=== PATIENT | female | born 1965 | race Caucasian/White ===

== ENCOUNTER 2018-03-06 00:13 | Outpatient (CLI) | payer BC, SELFPAY ==
[2018-03-06 12:37] LABS: BUN 12 mg/dL (7-18); CREATININE 0.85 mg/dL (0.55-1.02); Calcium 8.9 mg/dL (8.5-10.1); Chloride 104 mmol/L (98-107); Cholesterol 273 mg/dL (50-200); Glucose 85 mg/dL (70-100); HDL Cholesterol 55 mg/dL (40-60); LDL CHOLESTEROL 204 mg/dL (<100); Potassium 4.3 mmol/L (3.5-5.1); Sodium 141 mmol/L (136-145); Triglyceride 71 mg/dL (30-150)
== END 2018-03-06 00:33 ==
PROVIDERS: PCP Nurse Practitioner Family; Visit Provider Nurse Practitioner Family
DX: E78.5 Hyperlipidemia, unspecified (principal)
CPT/HCPCS: 36415; 80048; 80061; 83721

== ENCOUNTER 2018-06-12 00:51 | Outpatient (CLI) | payer BC, SELFPAY ==
[2018-06-12 11:31] LABS: ALT 20 U/L (12-78); AST 16 U/L (15-37); Albumin 3.7 g/dL (3.4-5.0); Alkaline Phosphatase 101 U/L (46-116); Anion Gap 9.7 mmol/L (3-11); BUN 14 mg/dL (7-18); Bilirubin, Total 1.3 mg/dL (0.2-1.0); CO2 29.3 mmol/L (21.0-32.0); CREATININE 0.86 mg/dL (0.55-1.02); Calcium 8.9 mg/dL (8.5-10.1); Chloride 104 mmol/L (98-107); Cholesterol 141 mg/dL (50-200); Glucose 92 mg/dL (70-100); HDL Cholesterol 61 mg/dL (40-60); LDL CHOLESTEROL 69 mg/dL (<100); Potassium 4.3 mmol/L (3.5-5.1); Sodium 143 mmol/L (136-145); Total Protein 6.9 g/dL (6.4-8.2); Triglyceride 49 mg/dL (30-150)
== END 2018-06-12 01:11 ==
PROVIDERS: PCP Nurse Practitioner Family; Visit Provider Nurse Practitioner Family
DX: E78.5 Hyperlipidemia, unspecified (principal)
CPT/HCPCS: 36415; 80053; 80061; 83721

== ENCOUNTER 2018-07-26 01:01 | Outpatient (CLI) | payer BC, SELFPAY ==
--- NOTE | 2018-07-26 17:00 | DI.MAMMO_ITS ---
SYMPTOM/DIAGNOSIS: SCREENING, Z12.31 MAMMOGRAMS: Mammograms were interpreted according to the usual protocol including computer analysis with CAD system, tomosynthesis and C view imaging. The breast tissue is heterogeneously radiodense which lowers the sensitivity of the study. There is no dominant mass. There are no suspicious calcifications and there has been no significant interval change when compared with prior images. IMPRESSION: No evidence of malignancy, category 1. Yearly screening mammography is recommended. Breast density, Category C. SA ASSESSMENT OF FINDINGS: Negative. Category 1. Patient will receive a letter notifying them of these results. Bi-RADS category C. The breasts are heterogeneously dense, which may obscure small masses.
== END 2018-07-26 01:21 ==
PROVIDERS: PCP Nurse Practitioner Family; Visit Provider Nurse Practitioner Family
DX: Z12.31 Encounter for screening mammogram for malignant neoplasm of breast (principal)
CPT/HCPCS: 77063; 77067

== ENCOUNTER 2019-01-25 18:36 | Outpatient (REF) | payer BC, SELFPAY ==
[2019-01-25 18:54] LABS: Bilirubin Negative (Negative); Blood Large (Negative); Clarity Clear (Clear); Glucose Negative (Negative); Ketones Negative (Negative); Leukocyte Esterase Large (Negative); Nitrite Negative (Negative); Urobilinogen 0.2 EU/dL (Up TO 0.2)
[2019-01-25 20:53] LABS: Bacteria Many HPF (Negative); C & S Indicated? Yes; Casts Negative LPF (Negative); Crystals Negative HPF (Negative); Epithelial Cells Negative HPF (Negative); Mucus Negative (Negative); WBC >50 HPF (0-5)
== END 2019-01-25 18:56 ==
LOC: LBN 18:36
PROVIDERS: PCP Nurse Practitioner Family
DX: N39.0 Urinary tract infection, site not specified (principal)
CPT/HCPCS: 87077; 81003; 81015; 87086; 87186

== ENCOUNTER 2019-02-26 01:29 | Outpatient (CLI) | payer BC, SELFPAY ==
[2019-02-26 13:03] LABS: Anion Gap 9.5 mmol/L (3-11); BUN 14 mg/dL (7-18); CO2 27.5 mmol/L (21.0-32.0); CREATININE 0.78 mg/dL (0.55-1.02); Calcium 8.8 mg/dL (8.5-10.1); Calculated LDL 92 mg/dL; Chloride 105 mmol/L (98-107); Cholesterol 170 mg/dL (50-200); Glucose 87 mg/dL (70-100); HDL Cholesterol 65 mg/dL (40-60); Sodium 142 mmol/L (136-145); Triglyceride 67 mg/dL (30-150)
[2019-02-28 06:36] LABS: Hemoglobin A1C 5.8 % (4.5-6.2)
== END 2019-02-26 01:49 ==
PROVIDERS: PCP Nurse Practitioner Family; Visit Provider Nurse Practitioner Family
DX: E78.5 Hyperlipidemia, unspecified (principal); Z13.1 Encounter for screening for diabetes mellitus
CPT/HCPCS: 36415; 80048; 80061; 83036

== ENCOUNTER 2019-05-02 16:10 | Outpatient (REF) | payer BC, SELFPAY ==
--- NOTE | 2019-05-02 16:00 | PAPFT_PTH ---
PATIENT: Mary Strickland LOC: [facility] U#:[id number] AGE/SX: 53/F ROOM: RE05/02/[address]: MATTHEW Phan : 1965 BED: DIS: 05/02/2019 SPEC #: [id number] RECD: 05/02/19 17:46 STATUS: LYDIA RENicki #: [id number] CARIDAD: 05/02/19 16:[address]: Josefina Condon DEPT: [facility] Cytology RECD BY: Melisa Fatima ENTERED: 05/02/19 17:48 SP TYPE: PAPFT ESTER DR: MATTHEW Jimenez Tissues: 1 - CX/ENDOCX FOR PAP SMEARS Procedures: PAP THIN PREP/UVM Screening HPV DNA PROBE Comments: [id number]
== END 2019-05-02 16:30 ==
LOC: LBN 16:10
PROVIDERS: PCP Nurse Practitioner Family; Visit Provider Nurse Practitioner Family
DX: Z12.4 Encounter for screening for malignant neoplasm of cervix (principal)
CPT/HCPCS: 88142; 87624

== ENCOUNTER 2019-05-02 17:28 | Outpatient (REF) | payer BC, SELFPAY ==
[2019-05-04 15:18] LABS: Chlamydia Result Negative (Negative); GC Result Negative (Negative)
== END 2019-05-02 17:48 ==
LOC: LBN 17:28
PROVIDERS: PCP Nurse Practitioner Family; Visit Provider Nurse Practitioner Family
DX: Z11.3 Encounter for screening for infections with a predominantly sexual mode of transmission (principal)
CPT/HCPCS: 87491; 87591

== ENCOUNTER 2019-09-27 02:31 | Outpatient (CLI) | payer BC, SELFPAY ==
--- NOTE | 2019-09-27 16:00 | DI.MAMMO_ITS ---
EXAM: MAMMO SCREENING CLINICAL HISTORY: screening TECHNIQUE: Mammograms were interpreted according to the usual protocol including computer analysis w [employer] CAD system, tomosynthesis and C-view imaging. COMPARISON: FINDINGS: The breasts are heterogeneously dense. No dominant mass clumped microcalcification is identified in either breast. Current examination is compared with previous examination is including July 2018 and there is new area of nodularity projected in the retroareolar areolar portion of the right breast on the MLO view, this is not optimally visualized. Spot compression view requested for further evaluat ion. Additionally I would note that the patient reports question of a palpable abnormality in the ha pra-areolar portion the right breast, additional evaluation with ultrasound may be indicated. No other significant change in appearance comparison with prior studies. IMPRESSION: Additional mammographic views of the right breast and right breast ultrasound requested as described above. BI-RADS Cat 0 - Assessment Incomplete: Need additional imaging evaluation: Breast Density - Category C - Heterogeneously dense:
== END 2019-09-27 02:51 ==
PROVIDERS: PCP Nurse Practitioner Family; Visit Provider Nurse Practitioner Family
DX: Z12.31 Encounter for screening mammogram for malignant neoplasm of breast (principal); R92.8 Other abnormal and inconclusive findings on diagnostic imaging of breast
CPT/HCPCS: 77063; 77067

== ENCOUNTER 2019-10-05 00:58 | Outpatient (CLI) | payer BC, SELFPAY ==
--- NOTE | 2019-10-05 | DI.MAMMO_ITS ---
EXAM: MG MAMMO SCREEN CALL BACK UNI CLINICAL HISTORY: NEW AREA OF NODULARITY PROJECTED IN RETROAREOLAR AREOLAR PORTION RT BREAST,. TECHNIQUE: Craniocaudal and mediolateral oblique Full Field Digital Mammography views of the right b reast with Computer Aided Diagnosis followed by Tomosynthesis and right breast ultrasound. COMPARISON: Priors available for comparison. FINDINGS: Mammography/Tomosynthesis: Masses/Architectural Distortion: Partially obscured well-circumscribed nodule at the 3 o'clock positi on retroareolar of the right breast. Microcalcifictions: No suspicious pleomorphic-type are seen. Skin Thickening/Nipple Retraction: None. Right breast US: Echotexture: Normal appearance of the glandular tissue. Shadowing: No suspicious foci. Cyst: 0.6 cm cyst at the 3 o'clock position of the right breast posterior to the nipple. This appear s to correspond to the mammographic abnormality. Solid lesions: None seen. Ductal dilation: None. IMPRESSION: 1. No evidence of malignancy is noted. 2. A six-month follow-up right mammogram is recommended for re-evaluation. 3. The findings were discussed with the patient on the date of the examination. BI-RADS Category 3 - 6 month - Probably Benign Finding: Recommend follow-up mammography in 6 months Breast Density - Category C - Heterogeneously dense The mammogram demonstrates the patient's breast tissue is dense. Dense breast tissue is very common a nd is not abnormal but dense breast tissue can make it harder to find cancer on a mammogram. Also, de nse breast tissue may increase their breast cancer risk. This information about the result of the [facility] mogram report was provided to the patient to raise their awareness. Use this report when you speak wi th the patient about their risks for breast cancer, which includes their family history. At that time , you may recommend for more screening tests (Ultrasound or MRI) as they might be useful based on the ir risk. A negative radiographic report should not delay biopsy if a dominant or clinically suspicious mass is present. Up to ten percent of cancers are not identified on mammography. A negative report may reinforce clinical impression. Adenosis and dense breasts may obscure an underlying neoplasm. False positive reports average 6 to 10%. Patient will receive a letter notifying them of these results.
== END 2019-10-05 01:18 ==
PROVIDERS: PCP Nurse Practitioner Family; Visit Provider Nurse Practitioner Family
DX: Z12.31 Encounter for screening mammogram for malignant neoplasm of breast (principal); R92.8 Other abnormal and inconclusive findings on diagnostic imaging of breast; N60.01 Solitary cyst of right breast
CPT/HCPCS: 76642; 77063; 77067

== ENCOUNTER 2020-02-24 01:51 | Outpatient (CLI) | payer BC, SELFPAY ==
[2020-02-24 13:12] LABS: Anion Gap 6.6 mmol/L (3-11); BUN 11 mg/dL (7-18); CO2 30.4 mmol/L (21.0-32.0); CREATININE 0.77 mg/dL (0.55-1.02); Calcium 8.7 mg/dL (8.5-10.1); Calculated LDL 95 mg/dL (<100); Chloride 104 mmol/L (98-107); Cholesterol 178 mg/dL (<200); Glucose 94 mg/dL (74-106); HDL Cholesterol 54 mg/dL (40-60); Potassium 3.6 mmol/L (3.5-5.1); Sodium 141 mmol/L (136-145); TSH (W/Ref FT4) 2.27 uIU/mL (0.36-3.74); Triglyceride 148 mg/dL (<150)
[2020-02-24 13:17] LABS: Hemoglobin A1C 5.6 % (<5.7)
== END 2020-02-24 02:11 ==
PROVIDERS: PCP Nurse Practitioner Family; Visit Provider Nurse Practitioner Family
DX: E78.5 Hyperlipidemia, unspecified (principal); R73.03 Prediabetes
CPT/HCPCS: 36415; 80048; 80061; 83036; 84443

== ENCOUNTER 2020-04-12 00:13 | Outpatient (CLI) | payer BC, SELFPAY ==
--- NOTE | 2020-04-12 08:30 | DI.US_ITS ---
EXAM: US BREAST RT LIMITED CLINICAL HISTORY: 6 mo f/u, f/u to abnl mammo, R92.8 TECHNIQUE: Ultrasound right breast performed using standard protocol. COMPARISON: US US BREAST RT LIMITED from 10/05/2019 MG MG MAMMO DIAGNOSTIC UNI from 04/12/2020 FINDINGS: Images from limited right breast ultrasound are submitted for interpretation. Recent mammogram was r suyapa. At the 3 o'clock position there is a well-defined wider than taller 6 x 4 millimeter probable hemorrh agic microcyst or conglomeration microcysts. This exhibits neutral through transmission. IMPRESSION: 3 o'clock position finding, present exhibiting benign appearance. Recommend repeat ultrasound examin ation in 3 months to ensure stability. BI-RADS Category 3 - Probably Benign Finding: Recommend follow-up ultrasound in 3 months DATA REPOSITORY:
--- NOTE | 2020-04-12 15:20 | DI.MAMMO_ITS ---
EXAM: MG MAMMO DIAGNOSTIC UNI-RIGHT CLINICAL HISTORY: f/u right mammogram, f/u to abnl mammo, 6 mo f/u. TECHNIQUE: Unilateral spot mammographic images were obtained with 3D [employer]osynthesistechnique and util izing computer aided detection (CAD). COMPARISON: Prior mammograms, most recent being September 2019.. FINDINGS: Previously described subtle nodule is a quickly present on the present mammogram. Right breast ultrasound today reveals finding at 3 o'clock position which has appearance of which is either hemorrhagic microcyst or conglomeration microcyst at the 3 o'clock position measuring 6 x 3 mi llimeters and most probably corresponding to the finding on the mammogram. This is wider than taller and not exhibiting neutral through transmission. IMPRESSION: Presently benign-appearing right breast nodule at the 3 o'clock position. Appropriate follow-up is repeat right breast ultrasound in 3 months to ensure stability.. BI-RADS Category 3 - 3 month - Probably Benign Finding: Recommend follow-up ultrasound in 3 months Breast Density - Category C - Heterogeneously dense Breast density Category C or D implies that the patient has dense breast tissue. Dense breast tissue can make it harder to find cancer on a mammogram. Dense breast tissue is also associated with an incr eased risk of breast cancer. This information about the result of the mammogram report was provided to the patient to raise their awareness. Use this report when you speak with the patient about their risks for breast cancer, which includes their family history. At that time, you may recommend additional screening tests (Ultrasoun d or MRI) as these tests may add significant information. A negative radiographic report should not delay biopsy if a dominant or clinically suspicious mass is present. Up to ten percent of cancers are not identified on mammography. A negative report may reinforce clinical impression. Adenosis and dense breasts may obscure an underlying neoplasm. False positive reports average 6 to 10%. Patient will receive a letter notifying them of these results.
== END 2020-04-12 00:33 ==
PROVIDERS: PCP Nurse Practitioner Family; Visit Provider Nurse Practitioner Family
DX: R92.8 Other abnormal and inconclusive findings on diagnostic imaging of breast (principal); N63.15 Unspecified lump in the right breast, overlapping quadrants
CPT/HCPCS: 76642; 77061; 77065; G0279

== ENCOUNTER 2020-07-16 02:22 | Outpatient (CLI) | payer BC, SELFPAY ==
--- NOTE | 2020-07-16 07:30 | DI.US_ITS ---
EXAM: US BREAST RT LIMITED CLINICAL HISTORY: 3 mo f/u breast US,R92.8. TECHNIQUE: Limited ultrasound of the right breast was performed. COMPARISON: Prior ultrasound 04/12/2020 was reviewed. Prior mammograms were also reviewed. FINDINGS: The previously described finding at 3 o'clock position of the right breast is again noted and is unch anged in size and appearance. It measures 6 x 4 millimeters, unchanged. Appropriate follow-up is to keep patient yearly mammogram schedule implying the next bilateral mammog wilver would be in September or October 2020. Recommend repeat ultrasound examination at that time. IMPRESSION: Continued stable appearance of the probable hemorrhagic 6 x 4 millimeter microcyst or conglomeration microcysts at the 3 o'clock position of the right breast. Appropriate follow-up is to get this patient yearly mammogram schedule, implying her next bilateral m ammogram would be in September or October 2020. Recommend repeat ultrasound examination at that time.. BI-RADS Category 3 - Annual - Resume Annual Screening (date as above)) Breast Density - Category C - Heterogeneously dense Breast density Category C or D implies that the patient has dense breast tissue. Dense breast tissue can make it harder to find cancer on a mammogram. Dense breast tissue is also associated with an incr eased risk of breast cancer. This information about the result of the mammogram report was provided to the patient to raise their awareness. Use this report when you speak with the patient about their risks for breast cancer, which includes their family history. At that time, you may recommend additional screening tests (Ultrasoun d or MRI) as these tests may add significant information. A negative radiographic report should not delay biopsy if a dominant or clinically suspicious mass is present. Up to ten percent of cancers are not identified on mammography. A negative report may reinforce clinical impression. Adenosis and dense breasts may obscure an underlying neoplasm. False positive reports average 6 to 10%. Patient will receive a letter notifying them of these results.
== END 2020-07-16 02:42 ==
PROVIDERS: PCP Nurse Practitioner Family; Visit Provider Nurse Practitioner Family
DX: R92.8 Other abnormal and inconclusive findings on diagnostic imaging of breast (principal)
CPT/HCPCS: 76642

== ENCOUNTER 2020-07-27 02:56 | Outpatient (CLI) | payer BC, SELFPAY ==
--- NOTE | 2020-07-27 09:21 | DI.US_ITS ---
APPROVED REPORT EXAM: Comprehensive 2D, Doppler, and color-flow Echocardiogram Patient Location: Out-Patient Property Condition Assessor: Adrianna Silva RDCS (AE) Indications: Dyspnea on exertion, Fluid weight gain Other Information Study Quality: Adequate Conclusion Left Ventricle : The left ventricle is normal size. The left ventricular systolic function is normal. The left ventricular ejection fraction is within the normal range. There is normal left ventricular wall thickness. There is normal LV segmental wall motion. The left ventricular diastolic function is normal. LVEF is 60-65%. Right Ventricle : The right ventricle is normal size. The right ventricular systolic function is norm al. The RVSP is 18.1 mmHg. Atria : The left atrium size is normal. The right atrium size is normal. Valves: There are no hemodynamically significant valvular lesions. Great Vessels : The aortic root is normal in size. The ascending aorta is normal in size. Aortic arch is normal in caliber. IVC is normal in size and collapses >50% with inspiration. Please see remainder of study for further details. Wall motion Left Ventricle The left ventricle is normal size. The left ventricular systolic function is normal. The left ventric ular ejection fraction is within the normal range. There is normal left ventricular wall thickness. T here is normal LV segmental wall motion. The left ventricular diastolic function is normal. There is no ventricular septal defect visualized. LVEF is 60-65%. Right Ventricle The right ventricle is normal size. The right ventricular systolic function is normal. The RVSP is 18 .1 mmHg. Atria The left atrium size is normal. The right atrium size is normal. The interatrial septum is intact wit h no evidence for an atrial septal defect. Aortic Valve The aortic valve is normal in structure. Aortic valve is trileaflet. There is no aortic valvular sten osis. No aortic regurgitation is present. Mitral Valve Mild mitral annular calcification. No evidence of mitral valve stenosis. Trace mitral regurgitation. Tricuspid Valve The tricuspid valve is normal in structure. There is no tricuspid valve stenosis. Trace tricuspid reg urgitation. Pulmonic Valve The pulmonary valve is normal in structure. There is no pulmonic valvular stenosis. There is no pulmo barbie valvular regurgitation. Great Vessels The aortic root is normal in size. The ascending aorta is normal in size. Aortic arch is normal in ca liber. IVC is normal in size and collapses >50% with inspiration. Pericardium There is no pericardial effusion. 2D Dimensions IVSD d PLAX 0.82 cm F: 0.6-1.0 LV Vol A2C d MOD 61.3 mL LVPW d PLAX 0.82 cm F: 0.6 - 1.0 LV Vol A4C d MOD 100.0 mL LVID d PLAX 5.03 cm F: 3.8 - 5.2 LA vol/ BSA A2C s A-L 20.9 mL/m2 LVDs 3.40 cm F: 2.2 - 3.5 LA vol/ BSA A4C s A-L 23.2 mL/m2 Ao Root d 2.25 cm F: 2.7 - 3.3 LA Vol/ BSA Biplane s A-L 22.5 mL/m2 RA Area A4C 13.62 cm2 LA Area A4C s MOD 15.51 cm2 RA Vol/ BSA A4C s A-L 18.6 mL/m2 LA Area A2C s MOD 14.40 cm2 Ao Asc Diam d 2.91 cm F: 2.3 - 3.1 LV EF A4C MOD 61.8 % LV EF Teichholz 60.4 % LV EF A2C MOD 64.3 % LVEF (Yost's) 63.04 % F: 54 - 74 LV EF Biplane MOD 63.0 % LV Volume 62.01 mL F: 46 - 106 SV 49.94 mL LV Volume Index 35.23 mL/m2 F: 29 - 61 SV Index 28.24 mL/m2 LV Vol Biplane MOD 79.2 mL FS 32.40 % M-Mode TAPSE 2.09 cm (M/F) >1.7 LV Diastology MV E' medial 0.093 (>0.07 m/s) E/A Ratio 1.1 LV E/e MED 8.00 (<14) MV E Vmax 0.74 (0.4-1.3 m/s) MV E' lateral 0.149 (>0.1 m/s) MV A Vmax 0.70 (0.4-1.3 m/s) LV E/e LAT 4.95 (<14) MV E/A Ratio 1.01 MV E/E' medial 8.02 MV E/E' lateral 5.00 Aortic Valve LVOT Area 2.72 cm2 AoV Area Vmax 2.39 cm2 LVOT Vmax 1.17 m/s AoV Area/ BSA (Vmax) 1.35 cm2/m2 LVOT Mean Levon. 0.79 m/s RK Mean Levon. 2.17 cm2 LVOT Peak Grad 5.5 mmHg RK Mean Levon. Index 1.23 cm2/m2 LVOT Mean Grad 2.9 mmHg LVOT VTI 0.268 m LVOT Diam s 1.85 cm AoV Vmax 1.34 m/s Velocity Ratio 0.87 AoV Mean Levon. 1.00 m/s AoV Peak Grad 7.1 mmHg LVOT SV 73.08 mL AoV Mean Grad 4.2 mmHg AoV VTI 0.287 m AoV Area VTI 2.55 cm2 AoV Area/ BSA (VTI) 1.44 cm/m2 Mitral Valve MV DT 182 (160-240 msec) MV PHT 53 msec MV Area PHT 4.16 cm2 MV VTI 0.280 m MV VTI Annulus 0.279 m MV Area VTI 2.60 (4.0-6.0 cm2) Pulmonary Valve PV Vmax 1.12 (0.5-1.5 m/s) RVOT Peak Gr. 2.28 mmHg PV Peak Grad 5.0 mmHg RVOT Mean Gr. 1.20 mmHg PV Mean Grad 2.7 mmHg RVOT VTI 0.165 m PV VTI 0.244 m RVOT Vmax 0.75 m/s Tricuspid Valve TR Peak Grad 15.1 mmHg TR Vmax 1.95 m/s RA Pressure 3.00 mmHg RVSP (TR) 18.1 mmHg
== END 2020-07-27 03:16 ==
PROVIDERS: PCP Nurse Practitioner Family; Visit Provider Nurse Practitioner Family
DX: R06.09 Other forms of dyspnea (principal)
CPT/HCPCS: 93306

== ENCOUNTER 2020-10-12 02:56 | Outpatient (CLI) | payer BC, SELFPAY ==
[2020-10-12 11:12] LABS: Anion Gap 8.1 mmol/L (3-11); BUN 12 mg/dL (7-18); CO2 31.9 mmol/L (21.0-32.0); CREATININE 0.9 mg/dL (0.55-1.02); Calcium 8.8 mg/dL (8.5-10.1); Calculated LDL 216 mg/dL (<100); Chloride 102 mmol/L (98-107); Cholesterol 292 mg/dL (<200); Glucose 107 mg/dL (74-106); HDL Cholesterol 48 mg/dL (40-60); Sodium 142 mmol/L (136-145); Triglyceride 144 mg/dL (<150)
== END 2020-10-12 02:57 | disposition home or self-care (01) ==
LOC: LBO 02:56
PROVIDERS: PCP Nurse Practitioner Family; Visit Provider Nurse Practitioner Family
DX: E78.5 Hyperlipidemia, unspecified (principal); I10 Essential (primary) hypertension
CPT/HCPCS: 36415; 80048; 80061

== ENCOUNTER 2020-11-05 01:53 | Outpatient (CLI) | payer BC, SELFPAY ==
--- NOTE | 2020-11-05 | DI.US_ITS ---
Exam(s) US BREAST LT COMPLETE US BREAST RT COMPLETE MG MAMMO SCREENING EXAM: MG MAMMO SCREENING AND BILATERAL COMPLETE BREAST ULTRASOUND CLINICAL HISTORY: screening,Z12.39. TECHNIQUE: Bilateral full field digital CC and MLO mammographic images were obtained with 3D tomosyn thesis and utilizing computer aided detection (CAD). Also performed spot mammographic views of both breasts. Also performed bilateral complete breast ultrasound including all 4 quadrants of both breasts, both r etroareolar regions and both axillary regions. COMPARISON: Prior mammograms dating back to 2011, the most recent being September and March 2020. als o reviewed prior right breast ultrasound examinations of March 2020 and June 2020. FINDINGS: BILATERAL MAMMOGRAM: No new significant radiograph findings in the right breast. Small benign-appearing nodule located la terally in the right breast is unchanged. In the left breast there is a new oval noncalcified well-defined nodule measuring 5 x 3 millimeters l ocated 3 cm in from the nipple. This persists on dedicated spot compression 3D view performed today. There are no malignant-appearing microcalcification groups in this region or elsewhere in either [address]. There is no significant architectural distortion nor skin thickening-retraction. BILATERAL COMPLETE BREAST ULTRASOUND: RIGHT BREAST ULTRASOUND: The previously described 6 x 4 millimeter finding at the 3 o'clock position is actually best seen at the 5 o'clock position on today's study and appears unchanged, the appearance of a conglomeration of microcysts/partially solid partially cystic wider than taller nodule measuring 5.5 x 3 millimeters. At the 9 o'clock position there is a 5 x 3 millimeter benign-appearing conglomeration microcysts whic h may correspond to the benign-appearing nodule on the mammogram. No solid lesions seen in the right breast. No significant adenopathy in the right axilla. LEFT BREAST ULTRASOUND: At the 9 o'clock position there is a 6 x 4 millimeter finding which corresponds to the new finding on the mammogram and has the appearance of a benign conglomeration of microcysts. Other focal ultrasound findings in the left breast is a 3 x 2 millimeter microcyst at the 11 o'clock position. No findings in the immediate retroareolar region. Benign-appearing 9 x 6 millimeter lymph node is noted in the left axilla. IMPRESSION: 1. No radiographic evidence of malignancy in the right breast and the previously described finding at the 3 o'clock position remains stable. Other benign ultrasound finding in the right breast as descr ibed above. 2. There is a new left breast nodule seen on today's mammogram. This corresponds to what appears to be a benign 6 x 4 millimeter conglomeration microcyst at the 9 o'clock position of the left breast on ultrasound. 3. Most importantly, there are no new solid lesions seen in either breast. Appropriate follow-up (as discussed by myself with the patient today) is repeat bilateral breast yordan ging in 6 months, to include repeat bilateral mammogram and repeat bilateral breast ultrasound. Find ings must be stable for 2 years before returning to yearly mammogram schedule. BI-RADS Category 3 - 6 month - Probably Benign Finding: Recommend follow-up mammography in 6 months Breast Density - Category B - Scattered areas of fibroglandular density Breast density Category C or D implies that the patient has dense breast tissue. Dense breast tissue can make it harder to find cancer on a mammogram. Dense breast tissue is also associated with an incr eased risk of breast cancer. This information about the result of the mammogram report was provided to the patient to raise their awareness. Use this report when you speak with the patient about their risks for breast cancer, which includes their family history. At that time, you may recommend additional screening tests (Ultrasoun d or MRI) as these tests may add significant information. A negative radiographic report should not delay biopsy if a dominant or clinically suspicious mass is present. Up to ten percent of cancers are not identified on mammography. A negative report may reinforce clinical impression. Adenosis and dense breasts may obscure an underlying neoplasm. False positive reports average 6 to 10%. Patient will receive a letter notifying them of these results.
== END 2020-11-05 02:13 ==
PROVIDERS: PCP Nurse Practitioner Family; Visit Provider Nurse Practitioner Family
DX: Z12.31 Encounter for screening mammogram for malignant neoplasm of breast (principal); R92.8 Other abnormal and inconclusive findings on diagnostic imaging of breast; N63.25 Unspecified lump in the left breast, overlapping quadrants
CPT/HCPCS: 76642; 77063; 77067

== ENCOUNTER 2021-04-23 03:00 | Outpatient (CLI) | payer BC, SELFPAY ==
[2021-04-23 11:25] LABS: Anion Gap 7.9 mmol/L (3-11); BUN 17 mg/dL (7-18); CO2 33.1 mmol/L (21.0-32.0); CREATININE 0.9 mg/dL (0.55-1.02); Calcium 9.2 mg/dL (8.5-10.1); Calculated LDL 119 mg/dL (<100); Chloride 100 mmol/L (98-107); Cholesterol 222 mg/dL (<200); Glucose 102 mg/dL (74-106); HDL Cholesterol 65 mg/dL (40-60); Potassium 3.1 mmol/L (3.5-5.1); Sodium 141 mmol/L (136-145); Triglyceride 191 mg/dL (<150)
== END 2021-04-23 03:01 | disposition home or self-care (01) ==
LOC: LBO 03:01
PROVIDERS: PCP Nurse Practitioner Family; Visit Provider Nurse Practitioner Family
DX: I10 Essential (primary) hypertension (principal); E78.5 Hyperlipidemia, unspecified
CPT/HCPCS: 36415; 80048; 80061

== ENCOUNTER 2021-05-13 00:35 | Outpatient (CLI) | payer BC, SELFPAY ==
--- NOTE | 2021-05-13 14:23 | DI.MAMMO_ITS ---
Exam(s) US BREAST RT LIMITED MG MAMMO DIAGNOSTIC BI US BREAST LT LIMITED EXAM: MG MAMMO DIAGNOSTIC BI CLINICAL HISTORY: 6 mo f/u,r92.8. COMPARISON: 2011 through 05 November 2020 TECHNIQUE: Craniocaudal and mediolateral oblique Full Field Digital Mammography views of both breast s with Computer Aided Diagnosis followed by Tomosynthesis and bilateral breast ultrasound. FINDINGS: Mammography/Tomosynthesis: Right mammogram: Masses/Architectural Distortion: None seen. Stable circumscribed nodule lateral right breast. Microcalcifications: No suspicious pleomorphic-type are seen. Skin Thickening/Nipple Retraction: None. Left mammogram: Masses/Architectural Distortion: None seen. Microcalcifications: No suspicious pleomorphic-type are seen. Skin Thickening/Nipple Retraction: None. Right breast US: Echotexture: Normal appearance of the glandular tissue. Shadowing: No suspicious foci. Cyst: 5 millimeter microcystic lesion 9 o'clock 5 cm from the nipple. 3 millimeter cyst 11 o'clock p osition 3 cm from the nipple. Solid lesions: None seen. Ductal dilation: None. Left breast ultrasound: Two tiny cysts in the 11 o'clock position. Previously noted lesion in the 9 o'clock position was not identified on the current exam. IMPRESSION: 1. No evidence of malignancy is noted. Stable small benign appearing cystic lesions noted on ultrasou nd bilaterally. 2. Unless there is more urgent need, follow-up screening mammography is recommended, as per [place] [employer] guidelines. BI-RADS Category 2 - Benign Findings Breast Density - Category B - Scattered areas of fibroglandular density A negative radiographic report should not delay biopsy if a dominant or clinically suspicious mass is present. Up to ten percent of cancers are not identified on mammography. A negative report may reinforce clinical impression. Adenosis and dense breasts may obscure an underlying neoplasm. False positive reports average 6 to 10%. Patient will receive a letter notifying them of these results.
== END 2021-05-13 00:55 ==
PROVIDERS: PCP Nurse Practitioner Family; Visit Provider Nurse Practitioner Family
DX: R92.8 Other abnormal and inconclusive findings on diagnostic imaging of breast (principal); Z12.31 Encounter for screening mammogram for malignant neoplasm of breast
CPT/HCPCS: 76642; 77062; 77066; G0279

== ENCOUNTER 2021-05-13 02:23 | Outpatient (CLI) | payer BC, SELFPAY ==
[2021-05-13 14:24] LABS: Magnesium 2.1 mg/dL (1.8-2.4); Potassium 3.5 mmol/L (3.5-5.1)
== END 2021-05-13 02:24 | disposition home or self-care (01) ==
LOC: LBO 02:24
PROVIDERS: PCP Nurse Practitioner Family; Visit Provider Nurse Practitioner Family
DX: E87.6 Hypokalemia (principal)
CPT/HCPCS: 36415; 83735; 84132

== ENCOUNTER 2021-09-24 03:05 | Outpatient (CLI) | payer BC, SELFPAY | END 2021-09-24 03:06 | disposition home or self-care (01) | LOC: LOS 03:05 | PROVIDERS: PCP Nurse Practitioner Family; Visit Provider Nurse Practitioner ==

== ENCOUNTER 2021-11-07 02:41 | Outpatient (CLI) | payer BC, SELFPAY ==
[2021-11-07 10:36] LABS: Hemoglobin A1C 5.8 % (<5.7)
[2021-11-07 11:22] LABS: Anion Gap 6.5 mmol/L (3-11); BUN 13 mg/dL (7-18); CO2 32.5 mmol/L (21.0-32.0); CREATININE 0.9 mg/dL (0.55-1.02); Calcium 8.9 mg/dL (8.5-10.1); Calculated LDL 123 mg/dL (<100); Chloride 102 mmol/L (98-107); Cholesterol 216 mg/dL (<200); Glucose 97 mg/dL (74-106); HDL Cholesterol 57 mg/dL (40-60); Sodium 141 mmol/L (136-145); Triglyceride 183 mg/dL (<150)
== END 2021-11-07 02:42 | disposition home or self-care (01) ==
PROVIDERS: PCP Nurse Practitioner Family; Visit Provider Nurse Practitioner
DX: E78.5 Hyperlipidemia, unspecified (principal); I10 Essential (primary) hypertension; R73.03 Prediabetes
CPT/HCPCS: 36415; 80048; 80061; 83036

== ENCOUNTER 2021-11-26 03:28 | Outpatient (CLI) | payer BC, SELFPAY ==
[2021-11-26 14:42] LABS: Potassium 3.2 mmol/L (3.5-5.1)
== END 2021-11-26 03:29 | disposition home or self-care (01) ==
PROVIDERS: PCP Nurse Practitioner Family; Visit Provider Nurse Practitioner
DX: I10 Essential (primary) hypertension (principal)
CPT/HCPCS: 36415; 84132

== ENCOUNTER 2021-12-10 01:32 | Outpatient (CLI) | payer BC, SELFPAY ==
[2021-12-10 16:06] LABS: Anion Gap 9.3 mmol/L (3-11); BUN 16 mg/dL (7-18); CO2 27.7 mmol/L (21.0-32.0); CREATININE 0.8 mg/dL (0.55-1.02); Calcium 8.6 mg/dL (8.5-10.1); Chloride 106 mmol/L (98-107); Glucose 89 mg/dL (74-106); Potassium 3.9 mmol/L (3.5-5.1); Sodium 143 mmol/L (136-145)
== END 2021-12-10 01:33 | disposition home or self-care (01) ==
PROVIDERS: PCP Nurse Practitioner Family; Visit Provider Nurse Practitioner
DX: I10 Essential (primary) hypertension (principal)
CPT/HCPCS: 36415; 80048

== ENCOUNTER 2022-06-09 00:53 | Outpatient (CLI) | payer BC, SELFPAY ==
[2022-06-09 13:07] LABS: Anion Gap 5.1 mmol/L (3-11); BUN 15 mg/dL (7-18); CO2 31.9 mmol/L (21.0-32.0); Calcium 9.4 mg/dL (8.5-10.1); Calculated LDL 90 mg/dL (<100); Chloride 104 mmol/L (98-107); Cholesterol 170 mg/dL (<200); Estimated GFR 65.71 (mL/min/1.73m2); Glucose 102 mg/dL (74-106); HDL Cholesterol 55 mg/dL (40-60); Potassium 3.6 mmol/L (3.5-5.1); Sodium 141 mmol/L (136-145); Triglyceride 126 mg/dL (<150)
[2022-06-09 13:08] LABS: Hemoglobin A1C 5.9 % (<5.7)
== END 2022-06-09 00:54 | disposition home or self-care (01) ==
LOC: LOS 00:53
PROVIDERS: PCP Nurse Practitioner Family; Visit Provider Nurse Practitioner Family
DX: I10 Essential (primary) hypertension (principal); E78.5 Hyperlipidemia, unspecified; R73.03 Prediabetes
CPT/HCPCS: 36415; 80048; 80061; 83036

== ENCOUNTER 2022-06-10 01:15 | Outpatient (CLI) | payer BC, SELFPAY | END 2022-06-10 01:35 | LOC: DI 01:17 | PROVIDERS: PCP Nurse Practitioner Family; Visit Provider Nurse Practitioner Family | DX: Z12.31 Encounter for screening mammogram for malignant neoplasm of breast (principal) | CPT/HCPCS: 77063; 77067 ==

== ENCOUNTER 2022-11-03 02:47 | Outpatient (CLI) | payer BC, SELFPAY ==
[2022-11-03 14:08] LABS: Anion Gap 7.9 mmol/L (3-11); BUN 10 mg/dL (7-18); CO2 30.1 mmol/L (21.0-32.0); Chloride 106 mmol/L (98-107); Glucose 117 mg/dL (74-106); Potassium 3.8 mmol/L (3.5-5.1); Sodium 144 mmol/L (136-145); TSH (W/Ref FT4) 2.29 uIU/mL (0.36-3.74)
== END 2022-11-03 02:48 | disposition home or self-care (01) ==
LOC: LBO 02:47
PROVIDERS: PCP Nurse Practitioner Family; Visit Provider Nurse Practitioner Family
DX: R60.0 Localized edema (principal); I10 Essential (primary) hypertension; E78.5 Hyperlipidemia, unspecified
CPT/HCPCS: 36415; 80048; 84443

== ENCOUNTER 2023-01-19 02:20 | Outpatient (CLI) | payer BC, SELFPAY ==
[2023-01-19 16:42] LABS: Abs Immature Grans 0.01 10^3/uL (0.0-0.06); Absolute Basophil Count 0.05 10^3/uL (0.0-0.2); Absolute Lymphocyte Count 3.01 10^3/uL (1.2-3.4); Absolute Monocyte Count 0.33 10^3/uL (0.1-0.8); Absolute Neutrophil Count 2.68 10^3/uL (1.2-6.7); Basophils % 0.7; Eosinophils % 10.3; HCT 37.9 % (36.0-46.0); HGB 12.3 g/dL (11.2-15.7); Immature Grans % 0.1; Lymphocytes % 44.4; MCH 28.1 pg (27.0-33.0); MCHC 32.5 % (32.0-36.0); MCV 87 fL (80-95); MPV 9.5 fL (8.0-11.0); Monocytes % 4.9; Neutrophils % 39.6; Platelet Count 212 10^3/uL (130-400); RBC 4.38 10^6/uL (3.93-5.22); RDW 12.7 % (11.7-14.6); RDW-SD 40.5 fL; WBC 6.78 10^3/uL (4.4-10.8)
== END 2023-01-19 02:21 | disposition home or self-care (01) ==
LOC: LBO 02:20
PROVIDERS: PCP Nurse Practitioner Family; Visit Provider Nurse Practitioner Family
DX: I10 Essential (primary) hypertension; R73.03 Prediabetes; R19.09 Other intra-abdominal and pelvic swelling, mass and lump; R60.0 Localized edema
CPT/HCPCS: 36415; 85025

== ENCOUNTER 2023-08-28 16:17 | Outpatient (REF) | payer BC, SELFPAY ==
--- NOTE | 2023-08-28 13:00 | PAPFT_PTH ---
PATIENT: Mary Strickland LOC: [facility] U#:[id number] AGE/SX: 57/F ROOM: RE08/28/[address]: MATTHEW Jimenez : 1965 BED: DIS: 08/28/2023 SPEC #: [id number] RECD: 08/31/23 13:09 STATUS: LYDIA HEATH #: [id number] CARIDAD: 08/28/23 13:[address]: Radha Magallanes DEPT: [facility] Cytology RECD BY: Melisa Fatima Tissues: 1 - CX/ENDOCX FOR PAP SMEARS Procedures: PAP THIN PREP/UVM Screening HPV DNA PROBE Comments: [id number]
== END 2023-08-28 16:18 | disposition home or self-care (01) ==
LOC: LBN 16:17
PROVIDERS: PCP Nurse Practitioner Family; Visit Provider Nurse Practitioner Family
DX: Z00.00 Encounter for general adult medical examination without abnormal findings (principal); I10 Essential (primary) hypertension; K58.9 Irritable bowel syndrome, unspecified; R19.4 Change in bowel habit
CPT/HCPCS: 88142; 87624

== ENCOUNTER → 2023-09-23 03:31 | Outpatient (CLI) | payer BC, SELFPAY ==
--- NOTE | 2023-09-23 08:15 | DI.MAMMO_ITS ---
Exam(s) MAMMO SCREENING EXAM: MAMMO SCREENING CLINICAL HISTORY: screening, Z12.39 TECHNIQUE: Mammograms were interpreted according to the usual protocol including computer analysis w [employer] CAD system, tomosynthesis and C-view imaging. COMPARISON: 2013 through 2022 FINDINGS: The breasts are composed of scattered fibroglandular densities, Breast Density category B. No suspicious masses or suspicious microcalcifications are seen. No skin thickening or abnormal axillary lymph nodes are seen. There has been no significant change from prior exams. IMPRESSION: BI-RADS Category 1, Negative mammogram Yearly screening mammography is recommended. Breast Density - Category B, scattered fibroglandular densities. A negative radiographic report should not delay biopsy if a dominant or clinically suspicious mass is present. Up to ten percent of cancers are not identified on mammography. A negative report may reinforce clinical impression. Adenosis and dense breasts may obscure an underlying neoplasm. False positive reports average 6 to 10%. Patient will receive a letter notifying them of these results.
== END ==
PROVIDERS: PCP Nurse Practitioner Family; Visit Provider Nurse Practitioner Family
DX: Z12.31 Encounter for screening mammogram for malignant neoplasm of breast (principal)
CPT/HCPCS: 77063; 77067

== ENCOUNTER 2023-10-20 03:16 | Outpatient (CLI) | payer BC, SELFPAY ==
[2023-10-20 12:51] LABS: Abs Immature Grans 0.01 10^3/uL (0.0-0.06); Absolute Basophil Count 0.05 10^3/uL (0.0-0.2); Absolute Eosinophil Count 0.33 10^3/uL (0.0-0.7); Absolute Lymphocyte Count 2.11 10^3/uL (1.2-3.4); Absolute Monocyte Count 0.27 10^3/uL (0.1-0.8); Absolute Neutrophil Count 2.13 10^3/uL (1.2-6.7); Eosinophils % 6.7 %; HCT 39.1 % (36.0-46.0); HGB 12.6 g/dL (11.2-15.7); Immature Grans % 0.2 %; Lymphocytes % 43.1 %; MCH 28.6 pg (27.0-33.0); MCHC 32.2 % (32.0-36.0); MCV 89 fL (80-95); MPV 9.4 fL (8.0-11.0); Monocytes % 5.5 %; Neutrophils % 43.5 %; Platelet Count 247 10^3/uL (130-400); RBC 4.41 10^6/uL (3.93-5.22); RDW 12.9 % (11.7-14.6); RDW-SD 42.1 fL
[2023-10-20 13:04] LABS: Hemoglobin A1C 5.7 % (<5.7)
[2023-10-20 13:08] LABS: ALT 26 U/L (14-59); AST 18 U/L (15-37); Albumin 3.8 g/dL (3.4-5.0); Alkaline Phosphatase 95 U/L (46-116); Anion Gap 7.9 mmol/L (3-11); BUN 12 mg/dL (7-18); Bilirubin, Total 1.32 mg/dL (0.2-1.0); CO2 29.1 mmol/L (21.0-32.0); CREATININE 0.9 mg/dL (0.55-1.02); Calcium 9.2 mg/dL (8.5-10.1); Chloride 107 mmol/L (98-107); Glucose 95 mg/dL (74-106); Potassium 3.8 mmol/L (3.5-5.1); Sodium 144 mmol/L (136-145); TSH (W/Ref FT4) 1.81 uIU/mL (0.36-3.74); Total Protein 7.1 g/dL (6.4-8.2)
[2023-10-20 19:48] LABS: Hepatitis C Ab w Rflx HCV PCR Negative (Negative)
[2023-10-20 22:13] LABS: Lab Add On Test DONE
[2023-10-21 10:19] LABS: IgA 124 mg/dL (85-499); Interpretation (See Note); Tissue Transglutaminase IgA <4.0 CU (<20.0)
[2023-10-21 20:48] LABS: HIV-1/2 Ag & Ab Screen Negative (Negative)
[2023-10-21 20:51] LABS: HBs Antibody, Quant 318.2 mIU/mL (See Note); Hep B Surface Ab Positive (See Note); Hepatitis B Core Antibody Negative (Negative); Hepatitis B Surface Antigen Negative (Negative)
== END 2023-10-20 03:17 | disposition home or self-care (01) ==
LOC: LOS 03:16
PROVIDERS: PCP Nurse Practitioner Family; Visit Provider Nurse Practitioner Family
DX: K58.9 Irritable bowel syndrome, unspecified (principal); Z00.00 Encounter for general adult medical examination without abnormal findings; Z11.59 Encounter for screening for other viral diseases
CPT/HCPCS: 36415; 80053; 82784; 83516; 86704; 86706; 86803; 87340; 87389; 83036; 84443; 85025

== ENCOUNTER 2023-11-27 08:30 | Day surgery (SDC) | payer BC, SELFPAY ==
--- NOTE | 2023-11-26 11:48 | W.ANESPRE ---
General Info Date of Service Date Performed: 11/27/23 Height: 5 ft 3 in Weight: 72.631 kg Body Mass Index (BMI): 28.3 Surgical Procedure: Operation Date: 11/27/23 09:50 Proposed Procedure Side Surgeon moisés Herman MD Meds Allergies and Home Medications Allergies Allergy/AdvReac Type Severity Reaction Status Date / Time dog dander Allergy Itchy eyes Verified 11/27/23 08:49 No Known Drug Allergies Allergy Unknown Verified 11/27/23 08:49 Home Medication ?Medication ?Instructions ?Recorded cetirizine 10 mg capsule (All Day 10 mg PO DAILY 12/01/19 Allergy (cetirizine)) cholecalciferol (vitamin D3) 50 50 mcg PO DAILY 03/08/21 mcg (2,000 unit) capsule valacyclovir 1 gram tablet 1,000 mg PO DAILY PRN herpes 01/20/23 simplex II 5 days #30 tabs rosuvastatin 10 mg tablet 10 mg PO DAILY #90 tabs 11/11/23 Current Visit Medications: Current Medications Generic Name Dose Route Start Last Admin Trade Name Freq PRN Reason Stop Dose Admin Ringer's Solution 1,000 mls @ 80 mls/hr 11/27/23 06:00 IV 12/26/23 23:59 INFUSION BRYANNA IV Miscellaneous Supplies 1 each 11/27/23 06:00 Iv Access IV 12/26/23 23:59 DIRECTED BRYANNA Sodium Chloride 0 ml 11/27/23 06:00 Normal Saline Flush 10 Ml Syr IV 12/26/23 23:59 PRN PRN Sodium Chloride 0 ml 11/27/23 06:00 Normal Saline 10 Ml Vial IJ 12/26/23 23:59 DIRECTED PRN Sterile Water 0 ml 11/27/23 06:00 Water,Injection,Sterile 10 Ml Vial IJ 12/26/23 23:59 DIRECTED PRN PFSH Active Problems Active Problems: Problem Status Onset Code Essential hypertension Chronic I10 Prediabetes Chronic R73.03 IBS (irritable bowel syndrome) Chronic K58.9 Change in bowel habits Chronic R19.4 Hyperlipidemia Chronic E78.5 Rhinitis Acute J31.0 Bilateral lower extremity edema Chronic R60.0 Medical History Medical History COVID-19 virus infection Renal calculi Depression Surgical History Surgical History History of bilateral ligation of fallopian tubes Tobacco Smoking/Tobacco Use Status: Never Passive smoking exposure: No Second hand exposure: Yes Alcohol Alcohol Intake: current Alcohol intake frequency: a few times a month Alcohol type: wine and hard liquor Counseling provided: provider counseling Details: Suggested reduce to 1 or less per day Substance Use Substance use: Never Substance use type: does not use Prental History History 5 Para 4 Hx # Term Pregnancies Multiple births Hx # Pregnancies Ectopic pregnancies AB induced Hx Number of Living Children 4 AB spontaneous Vital Signs and Lab Results Vital Signs Most Recent Vital Signs in EMR: Temp Pulse Resp BP Pulse Ox 36.7 C 67 16 133/88 98 11/27/23 08:51 11/27/23 08:51 11/27/23 08:51 11/27/23 08:51 11/27/23 08:51 Lab Results Blood Type / Crossmatch: No Data to Display Complete Blood Count: No Data to Display Complete Metabolic Panel: No Data to Display Liver Function Panel: No Data to Display Coagulation Panel: No Data to Display Cardiac Panel: No Data to Display Arterial Blood Gas: No Data to Display Venous Blood Gas: No Data to Display Pancreas Panel: No Data to Display Thyroid Panel: No Data to Display Infectious Disease: No Data to Display Blood Cultures: No Data to Display Toxicology Panel: No Data to Display Imaging and Studies Imaging and Studies Study information below may be from another EMR and interpreted by another provider. Please see original notes in EMR for more complete details. Echocardiogram Summary: 08/15: LVEF 60-65%, RVSP 18. no sig valve issues. Anesthesia Assessment and Plan Anesthesia History Personal History: No History of Anesthesia Complications Family History: No Family History of Anesthesia Complications Exercise Tolerance Exercise Tolerance: Metabolic Equivalents>4 Cardiac & Pulmonary Exam Cardiac Exam: Normal S1/S2 Heart Sounds Pulmonary Exam: Clear Bilateral Breath Sounds Implantable Cardiac Device Does patient have a Pacemaker or an ICD?: No Airway Exam Known Difficult Airway: No Mallampati Class: 3 Mouth Opening: Normal (> 3cm) Thyromental Distance: Greater than 3 cm Neck Range of Motion: Full ROM Neck Circumference: Normal Teeth Condition: Normal Dentition ASA Classification ASA Score: ASA 2 Emergency Case?: No NPO Status NPO Status: NPO Clears >2 hours, Solids >8 hours Anesthesia Plan Resuscitation Status: Full Code Anesthesia Technique: General Anesthesia Airway Planned: Natural Airway Monitors Used: Standard Monitors Preoperative Comments:: 58 yo female for colo. Sig PMHx: HTN, preDM, vertigo. never smoker, occ EtOH.
--- NOTE | 2023-11-26 19:07 | W.PM.DSUDISC ---
Date of service: 11/27/23 Time of Service: 11:50 Discharge Plan Disposition Patient Disposition: Home Condition: Good Discharge Details Reason For Visit: colonoscopy Attending Provider: Tim Herman Primary Care Provider: Radha Magallanes Home Meds and New Rx's Prescriptions: Continued cholecalciferol (vitamin D3) 50 mcg (2,000 unit) capsule 50 mcg PO DAILY All Day Allergy (cetirizine) 10 mg capsule 10 mg PO DAILY valacyclovir 1 gram tablet 1,000 mg PO DAILY PRN (Reason: herpes simplex II) 5 Days Qty: 30 2RF Rx Instructions: Take 1 tablet daily for 5 days at first onset of symptoms rosuvastatin 10 mg tablet 10 mg PO DAILY Qty: 90 3RF Rx Instructions: Take 1 tablet by mouth daily in the evening Discontinued bisacodyl 5 mg tablet,delayed release (DR/EC) 5 mg PO ONCE Qty: 4 0RF Rx Instructions: Per Colonoscopy bowel prep instructions polyethylene glycol 3350 17 gram/dose powder 238 g PO ONCE Qty: 238 0RF Rx Instructions: For Colonoscopy bowel prep, as directed by office Discharge Instructions Instructions: Colon polyps, Diverticulosis Additional Instructions: Mary, we were able to complete your colonoscopy today. I did find and remove 3 polyps. 2 of these polyps were quite challenging to get out, so the procedure took a little longer than anticipated. There is also a small area of inflammation at the top part of your rectum. It is difficult to say whether or not this is polyposis, which is a cluster of small polyps, or inflammatory bowel disease such as Crohn's disease. I should get a report from the pathologist in the next week or 2 describing the nature of all of this, and once I have that information, I will be in touch to see how you are doing, and discuss any other steps if needed. Incidentally, you also have quite a bit of diverticulosis. Diverticula are little weak spots in the muscular part of the colon wall. This can cause quite a bit of inflammation, and narrowing of the colon, which could account for some of your symptoms. Will start with the results of all the polyp report, and go from there. If you need anything at all in the meantime, please do not hesitate to ask. 1. If tolerated, consume a soft, low fiber diet for 1-2 days. 2[address] Do not drive, drink alcohol, operate machinery, make critical decisions, or do activities that require coordination or balance for 24 hours. 3. Because air was put into your colon during the procedure, expelling air from your rectum (passing gas or farting) is normal. 4. You may not have a bowel movement for 1-3 days because of the colonoscopy prep. This is normal. 5. Go directly to the emergency room if you notice any of the following: Develop chills (warm to touch), or if you have a thermometer and your temperature is above 101 Difficulty breathing or difficultly swallowing Persistent vomiting Severe abdominal pain, other than gas cramps Severe chest pain Black, tarry stools Any bleeding ? exceeding one tablespoon 6. Call your physician if the site where your intravenous was started becomes red, swollen, painful, and warm to touch. 7. Your physician has reviewed your pre-procedure medications. Please continue to take those medications as previously ordered. You will be given specific information/education regarding any changes to your medications before leaving. Stand Alone Forms: Anesthesia Discharge InstJuan Luis, Tanika Lozada (DSU) Activity:: Activity as Tolerated Diet:: As Tolerated Discharge Orders Discharge Orders: Discharge Order (Routine); Ordered 11/26/23 Ordered By: Tmi Herman DS: Diagnosis Discharge Diagnosis (1) Change in bowel habits: Status: Chronic Asessment and Plan: Follow-up on polypectomy results
--- NOTE | 2023-11-26 19:08 | W.COLOREPORT ---
Date of service: 11/27/23 Time of Service: 11:53 Colonoscopy Report Date of procedure: 11/27/23 Pre-op diagnosis general: Change in stools Post-op diagnosis procedure note: other (Colorectal polyps, diverticulosis) Procedure: Colonoscopy with polypectomy Surgeon: Tim Herman Anesthesia Type: General:No Airway Estimated blood loss (mL): 10 Pathology: other (0.25 cm polyp at 40 cm, 0.5 cm ascending colon polyps x 2, rectal polyp) Complications: None Disposition: same day Indications: Mary is a 58 year old woman who has had a change in the character and consistency of her stools. Prep: Miralax/Dulcolax Procedure Start Time: 10:57 Procedure End Time: 11:41 Retraction Time: 37 Findings: Sigmoid diverticulosis; 0.25 cm polyp at 40 cm, 0.5 cm ascending colon polyps x 2, rectal polyp Procedure Description: After the induction of monitored anesthetic care, and with the patient in left lateral decubitus position, I began by performing an external anorectal exam.? Perineum and skin were normal, as was the anal verge.? There was no evidence of external hemorrhoids.? Next, I performed a digital rectal exam.? I did not appreciate any abnormal findings.? Next, I advanced a colonoscope into the rectal vault.? I performed retroflexion.? This was normal.? Using insufflation, I then advanced the colonoscope beyond the rectal folds and into the sigmoid colon before advancing towards the cecum. The scope was noted to be in the cecum by identification of the ileocecal valve and appendiceal orifice.? I then began withdrawing the colonoscope using repeated irrigation as necessary for full evaluation of the colonic mucosa. ?Within the ascending colon were 2 polyps. There were just a few centimeters away from 1 another. These were slightly pedunculated. Using a combination of cold snare, and cold forcep polypectomy. I was able to remove these. There was minimal bleeding from the sites. I found another polyp around 40 cm from the anus. This was flat and about 0.25 cm in size. This was removed with cold forceps. Once the scope was withdrawn to the level of the rectum, great care was taken to examine portions of the rectal folds.? In the midportion of the rectum, somewhere between 5 and 10 cm from the anal verge was a small area of thickened tissue. It is a little difficult to say whether or not this was polyposis, or granulation tissue. This area was removed in piecemeal with cold forceps polypectomy. Finally, the scope was withdrawn and the patient was brought to the same-day surgery recovery unit as the anesthetic wore off. ?The findings and instructions were shared with the patient prior to discharge. [place] Bowel Prep [place] Bowel Prep Right Colon: 3 Left Colon: 3 Transverse Colon: 3 Total Score: 9
[2023-11-27 08:51] VITALS: BP 133/88; PULSE 67; RESP 16; TEMP 36.7; O2SAT 98
[2023-11-27] MEDS: Lactated Ringers 1,000 ML 80 ML IV (09:32)
[2023-11-27 09:34] VITALS: BMI 28.3
--- NOTE | 2023-11-27 11:01 | BOWEL_PTH ---
PATIENT: Mary Strickland LOC: [facility] U#:[id number] AGE/SX: 58/F ROOM: RE11/27/[address]: Tim Herman MD : 1965 BED: DIS: 11/27/2023 SPEC #: [id number] RECD: 11/27/23 12:41 STATUS: LYDIA RENicki #: [id number] CARIDAD: 11/27/23 11:[address]: Tim Herman DEPT: Surgical Specimen RECD BY: Melisa Fatima ENTERED: 11/27/23 12:44 SP TYPE: Bowel OTHR DR: Radha Magallanes, MATTHEW Tissues: 1 - BIOPSY BOWEL 2 - BIOPSY BOWEL 3 - BIOPSY BOWEL Procedures: GROSS AND MICRO LEVEL 4 Comments: [id number]
[2023-11-27 11:46] VITALS: BP 116/68; PULSE 70; RESP 16; TEMP 35.8; O2SAT 100
--- NOTE | 2023-11-27 11:56 | W.ANESPOSTOP ---
Postoperative Evaluation Date, Time and Location Date Performed: 11/27/23 Time Performed: 11:56 Patient Location: Day Surgery Unit Vital Signs Most Recent Imported Vital Signs: Most Recent Vital Signs Temp Pulse Resp BP Pulse Ox 35.8 C L 70 16 116/68 100 11/27/23 11:46 11/27/23 11:46 11/27/23 11:46 11/27/23 11:46 11/27/23 11:46 Pain Score Most Recent Pain Score: Most Recent Pain Score Pain Level 0 11/27/23 11:46 Assessment Mental Status: Awake (Alert & Oriented to Patient Baseline) Airway and Respiratory Function: Patent airway with normal (patient baseline) respiratory exam Cardiovascular Function: Hemodynamically Stable Hydration Status: Adequately Hydrated Nausea & Vomiting: No Nausea or Vomiting Pain: Pt. Denies Any Pain Peripheral Nerve Block: Patient did not receive a nerve block
--- NOTE | 2023-11-27 12:03 | W.ANESPOSTOP ---
Postoperative Evaluation Date, Time and Location Date Performed: 11/27/23 Time Performed: 12:04 Patient Location: Day Surgery Unit Vital Signs Most Recent Imported Vital Signs: Most Recent Vital Signs Temp Pulse Resp BP Pulse Ox 35.8 C L 70 16 116/68 100 11/27/23 11:46 11/27/23 11:46 11/27/23 11:46 11/27/23 11:46 11/27/23 11:46 Most Recent Vital Signs Temp Pulse Resp BP Pulse Ox 35.8 C L 70 16 116/68 100 11/27/23 11:46 11/27/23 11:46 11/27/23 11:46 11/27/23 11:46 11/27/23 11:46 Pain Score Most Recent Pain Score: Most Recent Pain Score Pain Level 0 11/27/23 11:46 Assessment Mental Status: Awake (Alert & Oriented to Patient Baseline) Airway and Respiratory Function: Patent airway with normal (patient baseline) respiratory exam Cardiovascular Function: Hemodynamically Stable Hydration Status: Adequately Hydrated Nausea & Vomiting: No Nausea or Vomiting Pain: Pt. Denies Any Pain Peripheral Nerve Block: Patient did not receive a nerve block
[2023-11-27 12:20] VITALS: BP 163/94; PULSE 63; RESP 16; TEMP 36.4; O2SAT 100
[2023-11-27 12:53] VITALS: BP 149/81; PULSE 60; RESP 16; TEMP 36.1; O2SAT 100
== END 2023-11-27 13:03 | disposition home or self-care (01) ==
LOC: SUR 08:30
PROVIDERS: PCP Nurse Practitioner Family; Visit Provider Surgery
PROC: 0DJD8ZZ Inspection of Lower Intestinal Tract, Via Natural or Artificial Opening Endoscopic (ICD-10-PCS; CPT 45378; principal; 2023-11-27 09:45)
DX: R19.4 Change in bowel habit (principal); D12.8 Benign neoplasm of rectum; D12.2 Benign neoplasm of ascending colon; K58.9 Irritable bowel syndrome, unspecified; I10 Essential (primary) hypertension; K57.30 Diverticulosis of large intestine without perforation or abscess without bleeding
CPT/HCPCS: 45385; 45380; 88305; J2704

== ENCOUNTER 2024-08-17 03:33 | Outpatient (CLI) | payer BC, SELFPAY ==
[2024-08-17 11:35] LABS: BUN 17 mg/dL (7-18); CREATININE 1.1 mg/dL (0.55-1.02); Calcium 9.2 mg/dL (8.5-10.1); Calculated LDL 77 mg/dL (<100); Chloride 107 mmol/L (98-107); Cholesterol 165 mg/dL (<200); Estimated GFR 57.88 (mL/min/1.73m2); Glucose 106 mg/dL (74-106); HDL Cholesterol 70 mg/dL (>or=50); Potassium 3.2 mmol/L (3.5-5.1); Sodium 143 mmol/L (136-145); Triglyceride 92 mg/dL (<150)
[2024-08-17 11:43] LABS: Hemoglobin A1C 5.9 % (<5.7)
== END 2024-08-17 03:34 | disposition home or self-care (01) ==
LOC: LOS 03:34
PROVIDERS: PCP Nurse Practitioner Family; Visit Provider Nurse Practitioner Family
DX: I10 Essential (primary) hypertension (principal)
CPT/HCPCS: 36415; 80048; 80061; 83036

== ENCOUNTER 2024-10-12 02:11 | Outpatient (CLI) | payer BC, SELFPAY ==
--- NOTE | 2024-10-12 09:00 | DI.MAMMO_ITS ---
Exam(s) MAMMO SCREENING EXAM: MAMMO SCREENING CLINICAL HISTORY: screening,Z12.39 TECHNIQUE: Bilateral full field digital CC and MLO mammographic images were obtained with 3D tomosynthesis and utilizing computer aided detection (CAD). COMPARISON: Comparison is made with prior examinations. FINDINGS: Masses/Architectural Distortion: No suspicious masses or areas of architectural distortion are present. Microcalcifications: No suspicious pleomorphic-type are seen. Skin Thickening/Nipple Retraction: None. IMPRESSION: 1. No significant interval change with no specific features of malignancy noted. 2. Unless there is more urgent need, screening mammography is recommended, as per [employer] guidelines. BI-RADS Category 1 - Negative Breast Density - Category B - There are scattered areas of fibroglandular density. Breast density Category C or D implies that the patient has dense breast tissue. Dense breast tissue can make it harder to find cancer on a mammogram. Dense breast tissue is also associated with an increased risk of breast cancer. This information about the result of the mammogram report was provided to the patient to raise their awareness. Use this report when you speak with the patient about their risks for breast cancer, which includes their family history. At that time, you may recommend additional screening tests (Ultrasound or MRI) as these tests may add significant information. A negative radiographic report should not delay biopsy if a dominant or clinically suspicious mass is present. Up to ten percent of cancers are not identified on mammography. A negative report may reinforce clinical impression. Adenosis and dense breasts may obscure an underlying neoplasm. False positive reports average 6 to 10%. Patient will receive a letter notifying them of these results.
== END 2024-10-12 02:31 ==
LOC: DI 02:11
PROVIDERS: PCP Nurse Practitioner Family; Visit Provider Nurse Practitioner Family
DX: Z12.31 Encounter for screening mammogram for malignant neoplasm of breast (principal); R92.323 Mammographic fibroglandular density, bilateral breasts
CPT/HCPCS: 77063; 77067

== ENCOUNTER 2024-10-13 19:05 | Outpatient (REF) | payer BC, SELFPAY ==
[2024-10-13 20:55] LABS: Anion Gap 7.5 mmol/L (3-11); BUN 17 mg/dL (7-18); CO2 29.5 mmol/L (21.0-32.0); CREATININE 0.9 mg/dL (0.55-1.02); Chloride 103 mmol/L (98-107); Estimated GFR 73.64 (mL/min/1.73m2); Glucose 165 mg/dL (74-106); Potassium 3.2 mmol/L (3.5-5.1); Sodium 140 mmol/L (136-145)
[2024-10-13 20:57] LABS: Bilirubin Negative (Negative); Blood Negative (Negative); Clarity Clear (Clear); Glucose Negative (Negative); Ketones Negative (Negative); Leukocyte Esterase Negative (Negative); Nitrite Negative (Negative); Specific Gravity 1.025 (1.005-1.025); Urobilinogen 0.2 mg/dL (Up to 0.2)
== END 2024-10-13 19:06 | disposition home or self-care (01) ==
LOC: LBN 19:05
PROVIDERS: PCP Nurse Practitioner Family; Visit Provider Physician Assistant
DX: R30.0 Dysuria (principal); N39.0 Urinary tract infection, site not specified; R10.9 Unspecified abdominal pain
CPT/HCPCS: 80048; 81003; 87086